=== PATIENT | female | born 1950 | race Caucasian/White ===

== ENCOUNTER → 2021-01-26 | Outpatient (CLI) | payer OTHER | LOC: MAMO 10:00 | DX: Z53.9 Procedure and treatment not carried out, unspecified reason (principal); Z85.3 Personal history of malignant neoplasm of breast ==

== ENCOUNTER → 2021-03-11 | Outpatient (CLI) | payer OTHER | LOC: MAMO 07:49 | DX: Z12.31 Encounter for screening mammogram for malignant neoplasm of breast (principal); Z85.3 Personal history of malignant neoplasm of breast; T85.898A Other specified complication of other internal prosthetic devices, implants and grafts, initial encounter | CPT/HCPCS: 77063; 77067 ==

== ENCOUNTER → 2021-03-26 | Outpatient (CLI) | payer OTHER | LOC: US 11:00 | DX: Z12.31 Encounter for screening mammogram for malignant neoplasm of breast (principal); Z85.3 Personal history of malignant neoplasm of breast | CPT/HCPCS: 76641-RT ==

== ENCOUNTER → 2021-06-08 | Outpatient (CLI) | payer OTHER | LOC: KOH-I 12:27 | DX: M79.671 Pain in right foot (principal) | CPT/HCPCS: 73620 ==

== ENCOUNTER → 2022-03-15 | Outpatient (CLI) | payer OTHER | LOC: US 10:30 | DX: Z09 Encounter for follow-up examination after completed treatment for conditions other than malignant neoplasm (principal); Z85.3 Personal history of malignant neoplasm of breast | CPT/HCPCS: 76641-RT ==

== ENCOUNTER → 2022-04-22 | Outpatient (CLI) | payer OTHER | LOC: NM 07:35 | DX: R79.0 Abnormal level of blood mineral (principal) | CPT/HCPCS: 78306; A9503 ==

== ENCOUNTER → 2022-05-05 | Outpatient (CLI) | payer OTHER | LOC: RAD 09:36 | DX: M17.12 Unilateral primary osteoarthritis, left knee (principal); M54.50 Low back pain, unspecified; M51.36 Other intervertebral disc degeneration, lumbar region | CPT/HCPCS: 72110; 73560 ==

== ENCOUNTER → 2022-08-11 | Outpatient (CLI) | payer OTHER | LOC: HEART 5 07:20 | DX: I10 Essential (primary) hypertension (principal); I08.1 Rheumatic disorders of both mitral and tricuspid valves | CPT/HCPCS: 93306 ==